=== PATIENT | male | born 1985 | race Caucasian/White ===

== ENCOUNTER 2016-07-15 14:26 | Emergency (ER) | payer OTHER ==
[~2016-07-15] VITALS: Ht 182.9 cm; Wt 90.7 kg
--- NOTE | 2016-07-15 15:25 | ED GI/GU/ABDOMINAL COMPLAINT ---
History of Present Illness General Chief Complaint: Male Genitourinary Problems Stated Complaint: KIDNEY STONES? Source: patient Exam Limitations: no limitations Allergies Coded Allergies: Penicillins (Intermediate, RASH 07/15/16) Triage Note: TRIAGE: 31 Y/O MALE PRESENTS C/O 10/10 LEFT FLANK PAIN SINCE AWAKENING AROUND 1100 THIS MORNING. DENIES URINARY BURNING. UNABLE TO REMAIN SEATED STILL IN TRIAGE. Triage Nurses Notes Reviewed? yes HPI: This patient is a 31-year-old male who presented to the emergency department today for evaluation of sudden onset of left flank pain. The symptoms began abruptly at approximately 11:00 this morning. The pain is sharp and located in his left flank. It is nonradiating and constant. The pain gets up to an 8 out of 10. He has mild associated nausea with no episodes of vomiting. The patient denied any abdominal pain or groin pain. He reported diaphoresis. No fevers or chills. No chest pain or difficulty breathing. The patient denied any urinary burning, urgency, frequency, or blood in the urine. No history of kidney stones. (SHONDA MCCAULEY PA-C) Vital Signs & Intake/Output Vital Signs & Intake/Output Vital Signs Date Time Temp Pulse Resp B/P B/P Pulse O2 O2 Flow FiO2 Mean Ox Delivery Rate 07/15 1726 98.6 67 18 135/83 98 Room Air 07/15 1534 Room Air 07/15 1433 97.0 77 18 128/83 98 Room Air Room Air ED Intake and Output 07/16 0000 07/15 1200 Intake Total 1000 Output Total 200 Balance 800 Intake, IV 1000 Output, Urine 200 Patient 200 lb Weight Weight Reported by Patient Measurement Method Reconcile Medications Multivitamin (Multi-Day Vitamins) 1 EACH TABLET 1 TAB PO DAILY SUPPLEMENT ( Reported) Naproxen (Naprosyn) 500 MG TABLET 1 TAB PO BID PRN PAIN (SANDRINE MARIN,OSCAR) Past History Travel History Traveled to [place] past 21 day No Medical History Any Pertinent Medical History? see below for history Neurological: NONE EENT: NONE Surgical History Surgical History: non-contributory Psychosocial History What is your primary language Kyrgyz Tobacco Use: Never used ETOH Use: occasional use Illicit Drug Use: denies illicit drug use Family History Hx Contributory? No (SHONDA MCCAULEY PA-C) Review of Systems Review of Systems Constitutional: Reports: see HPI. EENTM: Reports: no symptoms. Respiratory: Reports: no symptoms. Cardiovascular: Reports: no symptoms. GI: Reports: see HPI. Genitourinary: Reports: no symptoms. Musculoskeletal: Reports: see HPI. Skin: Reports: no symptoms. Neurological/Psychological: Reports: no symptoms. All Other Systems: Reviewed and Negative (PARISA MICHAEL,SHONDA) Physical Exam Physical Exam Gastrointestinal: normal bowel sounds, soft, non-tender, no organomegaly, nondistended. No rebound or guarding. No peritoneal signs Comments: Well-developed well-nourished person in moderate distress HEENT: Normal EENT exam, head normocephalic, moist mucous membranes Neck: Supple, no lymphadenopathy Back: Normal gait. No midline tenderness. Left-sided CVA tenderness Cardiovascular: Regular rate and rhythm with no murmurs, rubs, or gallops Respiratory: Chest nontender. No respiratory distress. Breath sounds clear to auscultation bilaterally with no wheezes, rales, or rhonchi Abdomen: Soft, nontender nondistended, no appreciable organomegaly. Normal bowel sounds. No ascites Extremity: Normal and equal pulses. Neuro: Alert oriented x3, cranial nerves II through XII grossly intact. Skin: No appreciable rash on exposed skin, skin is warm and dry. Psych: Mood and affect is normal Core Measures ACS in differential dx? No Severe Sepsis Present: No Septic Shock Present: No (PARISA MICHAEL,SHONDA) Progress Differential Diagnosis: AAA, AMI, appendicitis, biliary colic, bowel obstruction , colon cancer, cholecystitis, diverticulitis, gastritis, ischemic bowel, inflamm bowel dis, pancreatitis, PUD/GERD, perforated viscous, pyelonephritis, ureterolithiasis, urinary retention, urethritis, UTI/pyelo Diagnostic Imaging: Viewed by Me: CT Scan. Discussed w/RAD: CT Scan. Radiology Impression: PATIENT: SIRENA HUFFMAN PRESENT AGE: 31 PATIENT ACCOUNT NO: [id number] : 85 LOCATION: [facility] ORDERING PHYSICIAN: SHONDA MCCAULEY PA-C SERVICE DATE: 07/15/16 EXAM TYPE: CAT - CT ABD & PELVIS W/O IV CONTRAS EXAMINATION: CT ABDOMEN AND PELVIS WITHOUT CONTRAST CLINICAL INFORMATION: Left flank pain. Evaluate for renal stones. COMPARISON: None TECHNIQUE: Multidetector volumetric imaging was performed from the superior aspect of the liver through the pubic symphysis. Sagittal and coronal reformatted images were obtained on the technologist's workstation. DLP: None. 399 mGy-cm FINDINGS: Limited evaluation of the solid abdominal viscera in the absence of intravenous contrast. LUNG BASES: The visualized lung bases are unremarkable. LIVER, GALLBLADDER, AND BILIARY TREE: The liver is normal in size, shape, and attenuation. No contour deforming hepatic lesion or biliary ductal dilatation is present. The gallbladder is unremarkable with no evidence of radiopaque gallstones, gallbladder wall thickening, or obvious pericholecystic inflammatory changes. PANCREAS: Unremarkable. SPLEEN: Unremarkable. ADRENAL GLANDS: Unremarkable. KIDNEYS AND URETERS: Evaluation of the bilateral kidneys and renal collecting systems is notable for mild to moderate hydroureteronephrosis of the left kidney and renal collecting system secondary to a passed 5 mm stone which is visualized along the left posterior-lateral aspect of the urinary bladder, adjacent to the left ureterovesicular junction. There is a 1 mm punctate nonobstructing stone within the upper pole of left kidney. No significant left-sided perinephric stranding is identified. The right kidney is atrophic and lobular in contour. There is mild to moderate hydroureteronephrosis of the right kidney and right renal collecting system to the level of the right ureterovesicular junction, although there are no visible stones within the right ureter. BLADDER: The urinary bladder is decompressed. As noted above, there is a 5 mm stone along the left posterolateral aspect of the urinary bladder. GASTROINTESTINAL TRACT: Normal anatomic orientation of the stomach relative to the duodenum. Normal caliber of abdominal and pelvic bowel loops, without evidence of obstruction or ileus. No circumferential bowel wall thickening with surrounding inflammatory changes to suggest an underlying infectious or inflammatory enterocolitis. Normal-appearing appendix within the right lower quadrant of the abdomen. No organizing intra- abdominal fluid collections or free intraperitoneal air. ABDOMINAL WALL: No significant hernia is appreciated. LYMPH NODES: No significant abdominal or pelvic adenopathy. VASCULAR: Normal course and caliber of the abdominal aorta and its branching vessels, without aneurysmal dilatation. Limited evaluation for vascular patency in the absence of intravenous contrast. PELVIC VISCERA: Unremarkable. OSSEOUS STRUCTURES: No acute osseous abnormality. Normal alignment of the imaged thoracolumbar spine. IMPRESSION: 1. Mild to moderate hydroureteronephrosis of the left kidney and left renal collecting system secondary to a 5 mm passed stone within the urinary bladder, along the left posterolateral bladder wall. A 1 mm punctate nonobstructing stone is identified within the upper pole of the left kidney. No significant left-sided perinephric stranding. 2. Atrophy of the right kidney, which appears lobular in contour. Mild to moderate hydroureteronephrosis of the right kidney and right renal collecting system, without visible right-sided ureteral stones. A stricture of the right ureterovesicular junction cannot be excluded. Given the patient's age, recommend urological follow-up for further diagnostic workup and clinical management. DICTATED BY: ROBERT LARA MD DATE/TIME DICTATED:07/15/161731 PARLOR MAID:TYLER DATE/TIME TRANSCRIBED:07/15/161731 CONFIDENTIAL, DO NOT COPY WITHOUT APPROPRIATE AUTHORIZATION. <Electronically signed in Other Vendor System> SIGNED BY: ROBERT LARA MD 07/15/16 8161 Initial ED EKG: none (PARISA MICHAEL,SHONDA) Plan of Care: Orders Procedure Date/time Status Regular Diet 07/16 B Active CULTURE,URINE 07/15 1506 Active URINALYSIS 07/15 1506 Complete COMPREHENSIVE METABOLIC PANEL 07/15 1506 Complete CBC WITHOUT DIFFERENTIAL 07/15 1506 Complete Laboratory Tests 07/15/16 1604: Urine Color STRAW, Urine Clarity CLEAR, Urine pH 6.5, Ur Specific [place] <= 1.005, Urine Protein NEG, Urine Ketones NEG, Urine Nitrite NEG, Urine Bilirubin NEG, Urine Urobilinogen 0.2, Ur Leukocyte Esterase NEG, Ur Microscopic SEDIMENT EXAMINED, Urine RBC 3-5, Ur Epithelial Cells RARE, Urine Hemoglobin MOD H, Urine Glucose NEG 07/15/16 1528: Anion Gap 10, Estimated GFR > 60, BUN/Creatinine Ratio 12.7, Glucose 127 H, Calcium 8.9, Total Bilirubin 0.7, AST 32, ALT 66, Alkaline Phosphatase 59, Total Protein 6.7, Albumin 3.9, Globulin 2.8, Albumin/Globulin Ratio 1.4, CBC w Diff NO MAN DIFF REQ, RBC 4.93, MCV 89.5, MCH 30.4, RDW 12.0, MPV 9.3, Gran % 67.2, Lymphocytes % 27.6, Monocytes % 4.0, Eosinophils % 0.8, Basophils % 0.4, Absolute Granulocytes 4.4, Absolute Lymphocytes 1.8, Absolute Monocytes 0.3, Absolute Eosinophils 0.1, Absolute Basophils 0, [facility] 33.9 Microbiology 07/15 1604 URINE ROUT: Urine Culture - RES Departure Departure Disposition: HOME OR SELF CARE Condition: Stable Clinical Impression Primary Impression: Ureterolithiasis Referrals: PEG MARIN,PETR TONEY MD,WILLIAM (PCP/Family) Additional Instructions: Strain your urine. Take medication for pain as prescribed. Rest and stay hydrated. Follow-up with the urologist whose information has been provided to you in this packet. Return to the emergency department for any worsening symptoms or concerns. Departure Forms: Customer Survey General Discharge Information Prescriptions: Current Visit Scripts Naproxen (Naprosyn) 1 TAB PO BID PRN PAIN #20 TAB (PARISA MICHAEL,SHONDA) PA/SHIFT LAB TECHNICIAN Co-Sign Statement Statement: ED Attending supervision documentation- I saw and evaluated the patient. I have also reviewed all the pertinent lab results and diagnostic results. I agree with the findings and the plan of care as documented in the PA's/SHIFT LAB TECHNICIAN's documentation. x I have reviewed the ED Record and agree with the PA's/SHIFT LAB TECHNICIAN's documentation. [] Additions or exceptions (if any) to the PAs/SHIFT LAB TECHNICIAN's note and plan are summarized below: [] (SANDRINE MARIN,OSCAR)
[2016-07-15 15:43] LABS: ABSOLUTE BASOPHIL COUNT 0 /CUMM (0.0-0.2); ABSOLUTE EOSINOPHIL COUNT 0.1 /CUMM (0.0-0.7); ABSOLUTE GRANULOCYTE CT 4.4 /CUMM (1.4-6.5); ABSOLUTE LYMPH COUNT 1.8 /CUMM (1.2-3.4); ABSOLUTE MONOCYTE COUNT 0.3 /CUMM (0.10-0.60); BASOPHIL % 0.4 % (0.0-2.0); EOSINOPHIL % 0.8 % (0-5); GRANULOCYTE % 67.2 % (42.2-75.2); HEMATOCRIT 44.2 % (42-52); MEAN CORPUSCULAR HGB 30.4 PG (27.0-31.0); MEAN CORPUSCULAR HGB CONC 33.9 G/DL (33.0-37.0); MEAN CORPUSCULAR VOLUME 89.5 FL (80.0-94.0); MEAN PLATELET VOLUME 9.3 FL (7.4-10.4); PLATELET COUNT 132 /CUMM (130-400); RED BLOOD CELL CT 4.93 /CUMM (4.70-6.10); WHITE BLOOD CELL COUNT 6.5 /CUMM (4.8-10.8)
[2016-07-15] MEDS ORDERED: MULTI-DAY VITA1 EACH PO (16:39)
[2016-07-15 17:26] VITALS: BP 135/83
--- NOTE | 2016-07-15 17:47 | CT SCAN REPORT ---
EXAMINATION: CT ABDOMEN AND PELVIS WITHOUT CONTRAST CLINICAL INFORMATION: Left flank pain. Evaluate for renal stones. COMPARISON: None TECHNIQUE: Multidetector volumetric imaging was performed from the superior aspect of the liver through the pubic symphysis. Sagittal and coronal reformatted images were obtained on the technologist's workstation. DLP: None. 399 mGy-cm FINDINGS: Limited evaluation of the solid abdominal viscera in the absence of intravenous contrast. LUNG BASES: The visualized lung bases are unremarkable. LIVER, GALLBLADDER, AND BILIARY TREE: The liver is normal in size, shape, and attenuation. No contour deforming hepatic lesion or biliary ductal dilatation is present. The gallbladder is unremarkable with no evidence of radiopaque gallstones, gallbladder wall thickening, or obvious pericholecystic inflammatory changes. PANCREAS: Unremarkable. SPLEEN: Unremarkable. ADRENAL GLANDS: Unremarkable. KIDNEYS AND URETERS: Evaluation of the bilateral kidneys and renal collecting systems is notable for mild to moderate hydroureteronephrosis of the left kidney and renal collecting system secondary to a passed 5 mm stone which is visualized along the left posterior-lateral aspect of the urinary bladder, adjacent to the left ureterovesicular junction. There is a 1 mm punctate nonobstructing stone within the upper pole of left kidney. No significant left-sided perinephric stranding is identified. The right kidney is atrophic and lobular in contour. There is mild to moderate hydroureteronephrosis of the right kidney and right renal collecting system to the level of the right ureterovesicular junction, although there are no visible stones within the right ureter. BLADDER: The urinary bladder is decompressed. As noted above, there is a 5 mm stone along the left posterolateral aspect of the urinary bladder. GASTROINTESTINAL TRACT: Normal anatomic orientation of the stomach relative to the duodenum. Normal caliber of abdominal and pelvic bowel loops, without evidence of obstruction or ileus. No circumferential bowel wall thickening with surrounding inflammatory changes to suggest an underlying infectious or inflammatory enterocolitis. Normal-appearing appendix within the right lower quadrant of the abdomen. No organizing intra-abdominal fluid collections or free intraperitoneal air. ABDOMINAL WALL: No significant hernia is appreciated. LYMPH NODES: No significant abdominal or pelvic adenopathy. VASCULAR: Normal course and caliber of the abdominal aorta and its branching vessels, without aneurysmal dilatation. Limited evaluation for vascular patency in the absence of intravenous contrast. PELVIC VISCERA: Unremarkable. OSSEOUS STRUCTURES: No acute osseous abnormality. Normal alignment of the imaged thoracolumbar spine. IMPRESSION: 1. Mild to moderate hydroureteronephrosis of the left kidney and left renal collecting system secondary to a 5 mm passed stone within the urinary bladder, along the left posterolateral bladder wall. A 1 mm punctate nonobstructing stone is identified within the upper pole of the left kidney. No significant left-sided perinephric stranding. 2. Atrophy of the right kidney, which appears lobular in contour. Mild to moderate hydroureteronephrosis of the right kidney and right renal collecting system, without visible right-sided ureteral stones. A stricture of the right ureterovesicular junction cannot be excluded. Given the patient's age, recommend urological follow-up for further diagnostic workup and clinical management.
[2016-07-15] MEDS ORDERED: NAPROSYN500 M1 PO (18:01)
== END 2016-07-15 18:10 ==
LOC: ERH 14:26
PROVIDERS: Physician Assistant
DX: N20.1 Calculus of ureter (principal)
CPT/HCPCS: 74176; 81001; 87086; 96374; 96375; J0131; J1885; J2405